=== PATIENT | female | born 1955 | race American Indian/Alaskan Native ===

== ENCOUNTER 2020-01-09 12:38 | Emergency (ER) | payer MEDICARE ==
[2020-01-09 13:14] VITALS: BP 156/89
== END 2020-01-09 14:17 | disposition home or self-care (01) ==
LOC: ED 12:38
DX: T24.211A Burn of second degree of right thigh, initial encounter (principal); T31.0 Burns involving less than 10% of body surface; T79.8XXA Other early complications of trauma, initial encounter; X12.XXXA Contact with other hot fluids, initial encounter; Y93.89 Activity, other specified; Y92.89 Other specified places as the place of occurrence of the external cause; Y99.8 Other external cause status
CPT/HCPCS: 90471; 90715; 99282; A6250